=== PATIENT | male | born 1945 | race Caucasian/White ===

== ENCOUNTER 2016-06-07 13:06 | Outpatient (CLI) | payer OTHER, MEDICAID ==
[2015-08-11 01:16] VITALS: BP 155/62
== END 2016-06-07 13:07 ==
LOC: POD 13:06
PROVIDERS: ATTEND Podiatrist
DX: B35.1 Tinea unguium (principal); M79.674 Pain in right toe(s); M79.675 Pain in left toe(s)
CPT/HCPCS: 11721; G0463

== ENCOUNTER 2016-08-23 13:15 | Outpatient (CLI) | payer OTHER, MEDICAID ==
[2015-08-11 01:16] VITALS: BP 155/62
== END 2016-08-23 13:16 ==
LOC: POD 13:15
PROVIDERS: ATTEND Podiatrist
DX: B35.1 Tinea unguium (principal); M79.674 Pain in right toe(s); M79.675 Pain in left toe(s)
CPT/HCPCS: 11721; G0463

== ENCOUNTER 2016-11-01 13:00 | Outpatient (CLI) | payer OTHER, MEDICAID ==
[2015-08-11 01:16] VITALS: BP 155/62
== END 2016-11-01 13:10 ==
LOC: POD 13:00
PROVIDERS: ATTEND Podiatrist
DX: B35.1 Tinea unguium (principal); M79.674 Pain in right toe(s); M79.675 Pain in left toe(s)
CPT/HCPCS: 11721; G0463

== ENCOUNTER 2016-11-28 08:16 | Outpatient (CLI) | payer OTHER ==
[2015-08-11 01:16] VITALS: BP 155/62
[2016-11-28 09:00] LABS: eGFR (African) 43; eGFR (Non-African) 35
== END 2016-11-28 08:17 ==
LOC: LAB 08:16
PROVIDERS: ATTEND Family Medicine
DX: E11.9 Type 2 diabetes mellitus without complications (principal)
CPT/HCPCS: 36415; 80053; 80061; 82043; 83036

== ENCOUNTER 2017-01-31 13:33 | Outpatient (CLI) | payer OTHER ==
[2015-08-11 01:16] VITALS: BP 155/62
== END 2017-01-31 13:34 ==
LOC: POD 13:33
PROVIDERS: ATTEND Podiatrist
DX: B35.1 Tinea unguium (principal); M79.674 Pain in right toe(s); M79.675 Pain in left toe(s)
CPT/HCPCS: 11721; G0463

== ENCOUNTER 2017-02-06 09:39 | Outpatient (CLI) | payer OTHER ==
[2015-08-11 01:16] VITALS: BP 155/62
== END 2017-02-06 09:40 ==
LOC: OUT 09:39
PROVIDERS: ATTEND Colon & Rectal Surgery
DX: Z12.11 Encounter for screening for malignant neoplasm of colon (principal)
CPT/HCPCS: G0463

== ENCOUNTER 2017-03-20 07:57 | Day surgery (SDC) | payer OTHER ==
[2015-08-11 01:16] VITALS: BP 155/62
[2017-03-20] MEDS ORDERED: SALINE FLUSH 10 ML DISP.SYRIN IVF ONE (08:00)
[2017-03-20] MEDS ORDERED: LACTATED RINGERS 1,000 ML IV.SOLN IV ONE (08:00)
[2017-03-20] MEDS ORDERED: PROPOFOL 500 MG/50 ML VIAL IV ONE (08:00)
[2017-03-20] MEDS ORDERED: LIDOCAINE HCL/PF 2% 100 MG/5 ML VIAL IJ ONE (08:00)
--- NOTE | 2017-03-21 10:16 | Operative Note ---
SURGEON: Kun Anthony MD ANESTHESIA: MAC anesthesia. ESTIMATED BLOOD LOSS: None. COMPLICATIONS: None. FINDINGS: Normal exam. PREOPERATIVE DIAGNOSIS: Screening colonoscopy. POSTOPERATIVE DIAGNOSIS: Normal colonoscopy. PROCEDURE PERFORMED: Colonoscopy to cecum. INDICATIONS FOR PROCEDURE: This is a 72-year-old gentleman who presents for a screening colonoscopy. DESCRIPTION OF PROCEDURE: Patient was brought to the endoscopy suite and placed in the left lateral decubitus position. A rectal examination was performed which was normal. The colonoscope was inserted and passed easily to the cecum. The ileocecal valve and appendiceal orifice were identified. The prep was good. The colonoscope was slowly retracted being careful to inspect all fitzpatrick. No polyps or other lesions were seen. The patient tolerated the procedure well. DISPOSITION: I recommend a repeat colonoscopy in 10 years. cc: Dr. Adrian FREEDMAN
== END 2017-03-20 08:00 ==
LOC: OPSURG 07:57
PROVIDERS: ATTEND Colon & Rectal Surgery
DX: Z12.11 Encounter for screening for malignant neoplasm of colon (principal)
CPT/HCPCS: J2001; J2704; J7120; G0121; S1016

== ENCOUNTER 2017-05-10 08:51 | Emergency (ER) | payer OTHER ==
[2017-05-10] MEDS: hydrALAZINE HCL 20 MG/1 ML IVP ONE ×2 (09:12→09:27)
--- NOTE | 2017-05-10 09:16 | ED Physician Documentation ---
Neuro Symptoms - HISTORIAN Historian: patient - HPI Stated Complaint: Sudden onset MATAMOROS Chief Complaint: Neurological Symptoms Last known Well Date: 05/10/17 Last Known Well Time: 07:00 Last known Well Code/Unknown Code: Known Severity: severe Further Comments: yes (72 year old male patient brought in from [facility] with reports of "stroke like symptoms". On arrival patient reported "worst headache of his life" which started at 0720. Redirected to stat CT.) - CHARACTERS OF DEFICIT New Weakness: RUE (slightly weak) Altered Sensation: none Vision Problems: No Impaired Speech/ Swallowing: No Decreased Ability: none Cognition is Usually: alert, oriented x3 Gait is Usually: walks w/o assistance Associated Symptoms: headache (01/19) - ROS MENTAL STATUS: none CVS/Resp Upper Extremity Problem: none MS/SKIN/LYMPH: none Neuro/Psych: none - PAST HX Past History: diabetes Type 2 Other History: hypertension, other (Osteoarthritis, spinal stenosis) Surgeries/Procedures: other (ORIF tibia) Allergies/Adverse Reactions: Allergies Allergy/AdvReac Type Severity Reaction Status Date / Time No Known Allergies Allergy Verified 08/10/15 23:24 Home Medications: Ambulatory Orders Medication Instructions Recorded Aspirin [Aspirin EC] 81 mg PO DAILY u2 07/21/12 - FAMILY HX Family History: denies: none - SOCIAL HX Smoking History: cigarettes - VITAL SIGNS Vital Signs: Vital Signs Temp Pulse Resp BP Pulse Ox 64 18 182/64 98 05/11/17 00:51 05/11/17 00:51 05/11/17 00:51 05/11/17 00:51 - REVIEWED ASSESSMENTS Nursing Assessment Reviewed: Yes Vitals Reviewed: Yes Progress - Progress Progress: SBP 220 - Hydralazine 20mg IV started. Updated patient on CT results - explained patient would need immediate transfer to neurosurgeon. Call to [facility] Spoke with Dr Doherty's - patient accepted as code stroke. Orders for Keppra load IV and Nicardipine drip. [facility] in route, will load as soon as arrival. No Keppra or nicardipine available. Spoke with patient's daughter, updated on transport and patient's status. 0935 Will titrate labetalol IV for SBP until [facility] arrives. Heart rate 60-65 0955 Patient remains stable, AAOx3, speech clear and appropriate. Patient last PO intake 0700 - coffee, no breakfast - EKG/XRAY/CT EKG: rhythm (SR, rate 67, no acute changes) ED Results Lab/Radiology - Lab Results Lab Results: Lab Results 05/10/17 05/10/17 05/10/17 09:15 09:15 09:15 WBC 8.50 K/ul K/ul (4.00-12.00) RBC 3.80 M/ul L M/ul (3.90-5.20) Hgb 11.8 g/dL L g/dL (12.0-18.0) Hct 36.0 % L % (37.0-53.0) MCV 94.7 fl fl (80.0-100.0) MCH 31.0 pg pg (28.0-34.0) MCHC 32.7 g/dL g/dL (30.0-36.0) RDW 13.3 % % (11.3-14.3) Plt Count 228 K/mm3 K/mm3 (130-400) Neut % (Auto) 78.6 % % (39.0-79.0) Lymph % (Auto) 11.3 % L % (16.0-50.0) [place] % (Auto) 4.6 % % (0.0-11.0) Eos % (Auto) 2.9 % % (0.0-6.8) Baso % (Auto) 0.4 (0.0-1.5) Neut # (Auto) 6.7 # k/uL # k/uL (1.4-7.7) Lymph # (Auto) 1.0 # k/uL # k/uL (0.6-4.0) [place] # (Auto) 0.4 # k/uL # k/uL (0.0-0.9) Eos # (Auto) 0.2 # k/uL # k/uL (0.0-0.6) Baso # (Auto) 0.0 # k/uL # k/uL (0.0-0.5) Reactive Lymphs % 2.1 % % (0.0-5.0) Reactive Lymphs # 0.2 # k/uL # k/uL (0.0-0.8) PT 10.0 Seconds Seconds (9.4-11.6) INR 0.95 (0.9-1.2) APTT 21.0 Seconds L Seconds (24.5-32.8) Sodium 136 mmol/L mmol/L (136-145) Potassium 4.3 mmol/L mmol/L (3.5-5.1) Chloride 100 mmol/L mmol/L (98-107) Carbon Dioxide 26 mmol/L mmol/L (22-30) BUN 53 mg/dL H mg/dL (9-20) Creatinine 1.80 mg/dL H mg/dL (0.66-1.25) Estimated Creat Clear 63 Est GFR ( Amer) 48 L (60 - ) Est GFR (Non-Af Amer) 40 L (60 - ) Glucose 217 mg/dL H mg/dL (74-106) Calcium 9.3 mg/dL mg/dL (8.4-10.2) Total Bilirubin 0.4 mg/dL mg/dL (0.2-1.3) AST 18 U/L U/L (15-46) ALT 34 U/L U/L (13-69) Alkaline Phosphatase 99 U/L U/L (38-126) Total Protein 7.1 g/dL g/dL (6.3-8.2) Albumin 3.8 g/dL g/dL (3.5-5.0) - Radiology Radiology Impressions: HISTORY: 72-year-old male with headache and altered mental status. COMPARISON: None available. TECHNIQUE: Noncontrast axial CT images of the head were performed. FINDINGS: There is acute hemorrhage in the basilar cisterns, including suprasellar cistern, ambient cisterns, and foramen magnum. There is mass effect on the anterior margin of the john. No intracranial mass, midline shift, hydrocephalus, or evidence of acute large vessel infarct. The mastoid air cells , middle ear spaces, and partially visualized paranasal sinuses are clear. IMPRESSION: Acute extra-axial hemorrhage accumulating along the basilar cisterns, possibly related to aneurysm rupture about the [place]. These findings were discussed with Jumana Newberry NP in the emergency room on 05/10 at 09:06 a.m. 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 - Orders Orders: ED Orders Category Date Time Status Continuous EKG monitoring Q30M Care 05/10/17 08:52 Active Continuous Pulse Oximetry Q30M Care 05/10/17 08:[address] IV Lock 1T Care 05/10/17 09:[address] BRAIN W/O CONTRAST Stat Exams 05/10/17 Completed CBC/PLATELET/DIFF Stat Lab 05/10/17 09:15 Completed CMP Stat Lab 05/10/17 09:15 Completed INFLUENZA A&B Stat Lab 05/10/17 08:52 Ordered PT-INR Stat Lab 05/10/17 09:15 Completed PTT Stat Lab 05/10/17 09:15 Completed UA W/MICRO IF INDICATED Stat Lab 05/10/17 08:52 Ordered 0.9 % Sodium Chloride [Normal Saline] 1,000 ml Med 05/10/17 09:12 Discontinued IV NOW 0.9 % Sodium Chloride [Sodium Chloride] 100 ml Med 05/10/17 10:16 Discontinued IV .STK-MED Labetalol HCl [Trandate] Med 05/10/17 09:35 Discontinued 10 mg IVP NOW STA Labetalol HCl [Trandate] Med 05/10/17 09:29 Discontinued 100 mg .ROUTE .STK-MED ONE Ondansetron HCl/Pf [Zofran 4 mg/2 ml] Med 05/10/17 10:04 Discontinued 4 mg .ROUTE .STK-MED ONE Ondansetron HCl/Pf [Zofran 4 mg/2 ml] Med 05/10/17 10:05 Discontinued 4 mg IVP NOW ONE [facility] Med 05/10/17 09:29 Discontinued 1 each MC .STK-MED ONE hydrALAZINE HCL [Apresoline] Med 05/10/17 09:12 Discontinued 10 mg IVP NOW ONE hydrALAZINE HCL [Apresoline] Med 05/10/17 09:31 Discontinued 10 mg IVP NOW ONE Oxygen Daily Oxygen 05/10/17 09:00 Ordered EKG WITH COMPARISON Stat Ther 05/10/17 09:06 Completed Neuro Symptoms Physical Exam - Physical Exam General Appearance: mild distress HEENT: no apparent trauma, EOM's intact, PERRL, ENT inspection nml, pharynx nml , airway intact, oral exam nml Neuro/Psych: alert, oriented x3, no evidence of acute CVA, mood/affect nml Cranial Nerves: nml as tested Cerebellar: nml as tested, nml gait Pheripheral Exam: motor nml, sensation nml, other (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 machine 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 slightly less than left) Respiratory: no resp distress, chest non-tender, breath sounds normal CVS: reg rate & rhythm, heart sounds normal, equal pulses, no murmur, no gallop , PMI nml, no JVD, no friction rub, 24 Abdomen: non-tender, no distention, no organomegaly Skin: color nml, no rash, nml palp., dry Extremities: non-tender, normal range of motion, no evidence of injury, no edema , J, 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
[2017-05-10] MEDS: 0.9 % SODIUM CHLORIDE 1,000 ML IV ONE (09:18)
[2017-05-10 09:21] LABS: BASOPHILS % 0.4 (0.0-1.5); EOSINOPHILS % 2.9 % (0.0-6.8); MEAN CORPUSCULAR VOLUME 94.7 fl (80.0-100.0); MONOCYTES % 4.6 % (0.0-11.0); NEUTROPHILS # 6.7 # k/uL (1.4-7.7)
--- NOTE | 2017-05-10 09:22 | Diagnostic Imaging Report ---
[facility] [address] [facility].[address] [address] Report Submission Date: May 10, 2017 9:08:44 AM FABRIC WORKER Patient Study Name: ALBINO COPELAND Date: May 10, 2017 8:46:29 AM FABRIC WORKER Modality Type: CT\SR Gender: M Description: : 47 Institution: [facility] Physician: JUMANA BRIONES (MAURO) - ER HISTORY: 72-year-old male with headache and altered mental status. COMPARISON: None available. TECHNIQUE: Noncontrast axial CT images of the head were performed. FINDINGS: There is acute hemorrhage in the basilar cisterns, including suprasellar cistern, ambient cisterns, and foramen magnum. There is mass effect on the anterior margin of the john. No intracranial mass, midline shift, hydrocephalus, or evidence of acute large vessel infarct. The mastoid air cells , middle ear spaces, and partially visualized paranasal sinuses are clear. IMPRESSION: Acute extra-axial hemorrhage accumulating along the basilar cisterns, possibly related to aneurysm rupture about the [place]. These findings were discussed with Jumana Briones NP in the emergency room on 05/10 at 09:06 a.m. FABRIC WORKER. Electronically signed on May 10, 2017 9:08:44 AM FABRIC WORKER by: Richard FREEDMAN
[2017-05-10] MEDS ORDERED: PHARMACY KEY 1 EACH EACH MC ONE (09:29)
[2017-05-10] MEDS: LABETALOL HCL 100MG/20ML VIAL IVP STA (09:35)
[2017-05-10] MEDS: ONDANSETRON HCL/PF 4 MG/ 2ML VIAL IVP ONE (09:35)
[2017-05-10] MEDS: 0.9 % SODIUM CHLORIDE 100 ML IV ONE (09:40)
[2017-05-11] MEDS: LABETALOL HCL 100MG/20ML VIAL ONE (00:46)
[2017-05-11] MEDS: ONDANSETRON HCL/PF 4 MG/ 2ML VIAL ONE (00:48)
[2017-05-11 00:54] VITALS: BP 182/64
== END 2017-05-10 09:40 | disposition short-term general hospital (02) ==
LOC: ED 08:51
DX: I62.9 Nontraumatic intracranial hemorrhage, unspecified (principal); E11.9 Type 2 diabetes mellitus without complications; I10 Essential (primary) hypertension
CPT/HCPCS: 70450; 80053; 85025; 85610; 85730; 93005; J0360; J2405; J3490; J7030; 96361; 96374; 96375; 96376; 99284; S1016

== ENCOUNTER 2017-07-15 13:09 | Outpatient (CLI) | payer OTHER ==
[2017-05-11 00:54] VITALS: BP 182/64
== END 2017-07-15 13:20 ==
LOC: POD 13:09
PROVIDERS: ATTEND Podiatrist
DX: B35.1 Tinea unguium (principal); M79.674 Pain in right toe(s); M79.675 Pain in left toe(s)
CPT/HCPCS: 11721; G0463

== ENCOUNTER 2017-07-29 16:46 | Observation (INO) | payer OTHER ==
--- NOTE | 2017-07-29 17:50 | ED Physician Documentation ---
General Adult - HISTORIAN Historian: child - HPI Chief Complaint: Lower Extremity Problem Additional Information: Patient has had a several day history of increaseing pain to the left knee. Was seen at the [facility] last noc and had some x-rays done and blood work done and was told he had arthritis tot he knee. Patient has gotten to the point that he is not able to bear weight on the knee. Has not been able to get around will with his walker. No history of trauma noted. Had a steroid ? shot in the knee while at [facility]. Has been seen at [facility] for subdural bleed related gait disturbance. Has been home for about 10 days on Home Health. Patient is more confused today, ? breathing heavier today. No fever or chills noted. Blood sugars have been doing OK, in the 200s today. Onset: days ago (3 days) Timing: worse Severity: moderate Modifying Factors: laying down helps Context: no truama Quality: sharp achy pain Location: left knee - ROS CONST: denies: fever, chills CVS/RESP: none GI/: none - PAST HX Past History: hypertension, other (spinal stenosis - lumbar) Other History: diabetes Type 2, other (recent subarachnoid hemorrhage) Surgeries/Procedures: other (ORIF tib fracture) Immunizations: referred to PCP - SOCIAL HX Smoking History: less than 1 pack/day (5-6/day) Alcohol Use: none Drug Use: none - FAMILY HX Family History: No - VITAL SIGNS Vital Signs: Vital Signs Temp Pulse Resp BP Pulse Ox 182/64 05/11/17 00:51 - REVIEWED ASSESSMENTS Nursing Assessment Reviewed: Yes Vitals Reviewed: Yes <Adrian Narvaez - Last Filed: 07/29/17 17:38> - VITAL SIGNS Vital Signs: Vital Signs Temp Pulse Resp BP Pulse Ox 98.5 F 96 H 20 123/45 95 07/29/17 17:18 07/29/17 17:18 07/29/17 17:18 07/29/17 17:18 07/29/17 17:18 <Jamari Hopson - Last Filed: 07/29/17 19:47> - PAST HX Allergies/Adverse Reactions: Allergies Allergy/AdvReac Type Severity Reaction Status Date / Time No Known Allergies Allergy Verified 07/29/17 17:47 Home Medications: Ambulatory Orders Medication Instructions Recorded Acetaminophen [Tylenol] 650 mg PO Q4-6 PRN 07/29/17 Benzocaine/Menthol [Cepacol Sore 1 each MM PRN PRN 07/29/17 Throat Lozenge] Guaifenesin [Mucinex] 600 mg PO BID PRN 07/29/17 Insulin Detemir [Levemir Flex-Pen] 18 unit SQ HS 07/29/17 Ketoconazole [Ketoderm] 15 gm TP PRN 07/29/17 Progress - Progress Progress: X-ray L knee: advanced osteoarthritis Pt lives alone, unstable, fall risk at home. Admit to Dr. Narvaez. <Jamari Hopson Last Filed: 07/29/17 19:47> ED Results Lab/Radiology - Lab Results Lab Results: Lab Results 07/29/17 07/29/17 18:58 18:58 WBC 11.80 K/ul K/ul (4.00-12.00) RBC 3.41 M/ul L M/ul (3.90-5.20) Hgb 10.0 g/dL L g/dL (12.0-18.0) Hct 32.1 % L % (37.0-53.0) MCV 94.2 fl fl (80.0-100.0) MCH 29.2 pg pg (28.0-34.0) MCHC 31.0 g/dL g/dL (30.0-36.0) RDW 15.0 % H % (11.3-14.3) Plt Count 217 K/mm3 K/mm3 (130-400) Neut % (Auto) 88.5 % H % (39.0-79.0) Lymph % (Auto) 4.8 % L % (16.0-50.0) [place] % (Auto) 5.1 % % (0.0-11.0) Eos % (Auto) 0.4 % % (0.0-6.8) Baso % (Auto) 0.2 (0.0-1.5) Neut # (Auto) 10.5 # k/uL H # k/uL (1.4-7.7) Lymph # (Auto) 0.6 # k/uL # k/uL (0.6-4.0) [place] # (Auto) 0.6 # k/uL # k/uL (0.0-0.9) Eos # (Auto) 0.0 # k/uL # k/uL (0.0-0.6) Baso # (Auto) 0.0 # k/uL # k/uL (0.0-0.5) Reactive Lymphs % 1.1 % % (0.0-5.0) Reactive Lymphs # 0.1 # k/uL # k/uL (0.0-0.8) Sodium 135 mmol/L L mmol/L (136-145) Potassium 4.6 mmol/L mmol/L (3.5-5.1) Chloride 98 mmol/L mmol/L (98-107) Carbon Dioxide 24 mmol/L mmol/L (22-30) BUN 40 mg/dL H mg/dL (9-20) Creatinine 1.80 mg/dL H mg/dL (0.66-1.25) Estimated Creat Clear 58 Est GFR ( Amer) 48 L (60 - ) Est GFR (Non-Af Amer) 40 L (60 - ) Glucose 229 mg/dL H mg/dL (74-106) Uric Acid 7.3 mg/dL mg/dL (3.5-8.5) Calcium 9.1 mg/dL mg/dL (8.4-10.2) Total Bilirubin 0.7 mg/dL mg/dL (0.2-1.3) AST 15 U/L U/L (15-46) ALT 20 U/L U/L (13-69) Alkaline Phosphatase 113 U/L U/L (38-126) Total Protein 6.9 g/dL g/dL (6.3-8.2) Albumin 3.6 g/dL g/dL (3.5-5.0) - Orders Orders: ED Orders Category Date Time Status KNEE 3 VIEWS [RAD] Stat Exams 07/29/17 Taken CBC/PLATELET/DIFF Routine Lab 07/29/17 18:58 Completed CMP Routine Lab 07/29/17 18:58 Completed SEDIMENTATION RATE (ESR) Routine Lab 07/29/17 18:58 Received URIC ACID Routine Lab 07/29/17 18:58 Completed URINALYSIS Routine Lab 07/29/17 18:55 Ordered Ketorolac Tromethamine [Toradol] Med 07/29/17 17:52 Discontinued 60 mg IM NOW ONE <Jamari Hopson Last Filed: 07/29/17 19:47> General Adult Physical Exam - PHYSICAL EXAM GENERAL APPEARANCE: moderate distress NECK: normal inspection, thyroid normal, supple RESPIRATORY: no resp distress, chest non-tender, breath sounds normal. No: wheezes, rales, rhonchi CVS: reg rate & rhythm, heart sounds normal, equal pulses, no murmur ABDOMEN: soft, no organomegaly, normal bowel sounds, no abdominal bruit BACK: normal inspection, no CVA tenderness SKIN: warm/dry, normal color EXTREMITIES: other (mild swelling to the left knee, some crepitus noted. No warm noted. Tenderness to palpation over the anterior knee. No bony abnl noted.) NEURO: oriented X3, mood/affect nml, cognition normal <Adrian Narvaez - Last Filed: 07/29/17 17:38> Discharge <Adrian Narvaez - Last Filed: 07/29/17 17:38> Decision to Admit: [id number] Decision Time: 19:45 <Jamari Hopson - Last Filed: 07/29/17 19:47> Clincal Impression: unstable gait Knee pain Qualifiers: Chronicity: unspecified Laterality: unspecified laterality Qualified Code(s): M25.569 - Pain in unspecified knee Referrals: Adrian Narvaez MD [Primary Care Provider] - Condition: Stable Disposition: 09 ADMITTED INPATIENT
[2017-07-29] MEDS ORDERED: KETOROLAC TROMETHAMINE 60 MG/2 ML VIAL IM ONE (17:52)
[2017-07-29 19:06] LABS: BASOPHILS % 0.2 (0.0-1.5); EOSINOPHILS % 0.4 % (0.0-6.8); MEAN CORPUSCULAR HEMOGLOBIN 29.2 pg (28.0-34.0); MEAN CORPUSCULAR VOLUME 94.2 fl (80.0-100.0); MONOCYTES % 5.1 % (0.0-11.0); NEUTROPHILS # 10.5 # k/uL (1.4-7.7)
[2017-07-29] MEDS ORDERED: ACETAMINOPHEN 325 MG TABLET PO PRN (19:56)
[2017-07-29] MEDS ORDERED: KETOCONAZOLE TP SCH (20:00)
[2017-07-29] MEDS ORDERED: SIMVASTATIN 20 MG TABLET PO SCH (21:00)
[2017-07-29] MEDS ORDERED: INSULIN DETEMIR 100 UNIT/ML 3ML PEN.INJCTR SQ SCH ×2 (21:00→21:13)
[2017-07-29] MEDS ORDERED: INSULIN DETEMIR 100 UNIT/ML 3ML PEN.INJCTR SQ ONE (21:06)
[2017-07-29 21:23] VITALS: BMI 70.5
[2017-07-30] MEDS ORDERED: LISINOPRIL 2.5 MG TABLET PO ONE (02:11)
--- NOTE | 2017-07-30 05:27 | Diagnostic Imaging Report ---
NORA JENKINS [facility] [address] [facility].[address]. [address] Report Submission Date: Jul 29, 2017 6:17:53 PM CDT Patient Study Name: ALBINO COPELAND Date: Jul 29, 2017 5:57:39 PM CDT Modality Type: DX Gender: M Description: LOWER EXTREMITY : 47 Institution: [facility] Physician: NORA JENKINS Left knee, AP, lateral and sunrise views. HISTORY Left knee pain. FINDINGS Significant joint space narrowing is noted in the medial compartment and patellofemoral compartment. There is spur formation at the distal femur, proximal tibia and patella. There is no acute fracture, dislocation or abnormal bone destruction. IMPRESSION Advanced osteoarthritis. Electronically signed on Jul 29, 2017 6:17:53 PM CDT by: Pelon FREEDMAN
[2017-07-30 06:39] LABS: APPEARANCE,URINE CLEAR (CLEAR); COLOR,URINE YELLOW (YELLOW)
[2017-07-30 06:40] LABS: OCCULT BLOOD,URINE NEGATIVE (NEGATIVE); UROBILINOGEN URINE 0.2 Eu (0.2-1.0)
--- NOTE | 2017-07-30 08:28 | Inpatient Progress Note ---
Subjective - Required Recertification Statement I anticipate X number of days because-include discharge plan: 1 - Review of Systems Events since last encounter: patient is still having a lot of pain with his left knee. He is moving it some. Still not able to bear weight on it will. Does not feel that he can manage at home. Objective - Exam Vitals and I&O: Vital Signs Temp 97.2 F L 07/30/17 06:00 Pulse 68 07/30/17 06:00 Resp 18 07/30/17 06:00 BP 157/65 07/30/17 06:00 Pulse Ox 95 07/30/17 06:00 Intake & Output 07/29/17 07/29/17 07/30/17 11:59 23:59 11:59 Intake Total 120 Output Total 450 Balance -330 Weight 236 kg Intake: Oral 120 Output: Urine 450 Other: Voiding Method Urinal General: Alert, Oriented to Person, Oriented to Place, Oriented to Time, Cooperative Lungs: Clear to auscultation, Normal air movement, Speaks full Sentences. No: Respiratory Distress, Wheezes, Rales, Rhonchi Cardiovascular: Regular rate, Normal S1, Normal S2, No murmurs Abdomen: Normal bowel sounds, Soft, No tenderness Extremities: No clubbing, No cyanosis, No edema, Other (moderate tenderness to palpation over the anterior aspect of the knee. Crepitus present. Pain with movement. Mild swelling noted. no joint effusion noted at this time. ) Skin: Normal, [place], Warm, Dry Neurological: Normal tone, Sensation intact Psych/Mental Status: Mental status NL, Mood NL - Results Results: Laboratory Results WBC 11.80 K/ul (4.00-12.00) 07/29/17 18:58 RBC 3.41 M/ul (3.90-5.20) L 07/29/17 18:58 Hgb 10.0 g/dL (12.0-18.0) L 07/29/17 18:58 Hct 32.1 % (37.0-53.0) L 07/29/17 18:58 MCV 94.2 fl (80.0-100.0) 07/29/17 18:58 MCH 29.2 pg (28.0-34.0) 07/29/17 18:58 MCHC 31.0 g/dL (30.0-36.0) 07/29/17 18:58 RDW 15.0 % (11.3-14.3) H 07/29/17 18:58 Plt Count 217 K/mm3 (130-400) 07/29/17 18:58 Neut % (Auto) 88.5 % (39.0-79.0) H 07/29/17 18:58 Lymph % (Auto) 4.8 % (16.0-50.0) L 07/29/17 18:58 [place] % (Auto) 5.1 % (0.0-11.0) 07/29/17 18:58 Eos % (Auto) 0.4 % (0.0-6.8) 07/29/17 18:58 Baso % (Auto) 0.2 (0.0-1.5) 07/29/17 18:58 Neut # (Auto) 10.5 # k/uL (1.4-7.7) H 07/29/17 18:58 Lymph # (Auto) 0.6 # k/uL (0.6-4.0) 07/29/17 18:58 [place] # (Auto) 0.6 # k/uL (0.0-0.9) 07/29/17 18:58 Eos # (Auto) 0.0 # k/uL (0.0-0.6) 07/29/17 18:58 Baso # (Auto) 0.0 # k/uL (0.0-0.5) 07/29/17 18:58 Reactive Lymphs % 1.1 % (0.0-5.0) 07/29/17 18:58 Reactive Lymphs # 0.1 # k/uL (0.0-0.8) 07/29/17 18:58 Sodium 135 mmol/L (136-145) L 07/29/17 18:58 Potassium 4.6 mmol/L (3.5-5.1) 07/29/17 18:58 Chloride 98 mmol/L (98-107) 07/29/17 18:58 Carbon Dioxide 24 mmol/L (22-30) 07/29/17 18:58 BUN 40 mg/dL (9-20) H 07/29/17 18:58 Creatinine 1.80 mg/dL (0.66-1.25) H 07/29/17 18:58 Estimated Creat Clear 58 03 18:58 Est GFR ( Amer) 48 (60-) L 07/29/17 18:58 Est GFR (Non-Af Amer) 40 (60-) L 18 18:58 Glucose 229 mg/dL (74-106) H 07/29/17 18:58 Uric Acid 7.3 mg/dL (3.5-8.5) 07/29/17 18:58 Calcium 9.1 mg/dL (8.4-10.2) 07/29/17 18:58 Total Bilirubin 0.7 mg/dL (0.2-1.3) 07/29/17 18:58 AST 15 U/L (15-46) 07/29/17 18:58 ALT 20 U/L (13-69) 07/29/17 18:58 Alkaline Phosphatase 113 U/L (38-126) 07/29/17 18:58 Total Protein 6.9 g/dL (6.3-8.2) 07/29/17 18:58 Albumin 3.6 g/dL (3.5-5.0) 07/29/17 18:58 Urine Color Yellow (YELLOW) 07/30/17 18:50 Urine Appearance Clear (CLEAR) 07/30/17 18:50 Urine pH 5.0 (5.0 - 8.0) 07/30/17 18:50 Ur Specific [place] 1.025 (1.010-1.030) 07/30/17 18:50 Urine Protein 1+ mg/dL (NEGATIVE) H 07/30/17 18:50 Urine Ketones Negative mg/dL (NEGATIVE) 07/30/17 18:50 Urine Occult Blood Negative (NEGATIVE) 07/30/17 18:50 Urine Nitrite Negative (NEGATIVE) 07/30/17 18:50 Urine Bilirubin Negative (NEGATIVE) 07/30/17 18:50 Urine Urobilinogen 0.2 Eu (0.2-1.0) 07/30/17 18:50 Ur Leukocyte Esterase Negative (NEGATIVE) 07/30/17 18:50 Urine Glucose Negative mg/dL (NEGATIVE) 07/30/17 18:50 Assessment/Plan - Assessment/Plan (1) Knee pain Status: Acute Current Visit: Yes Qualifiers: Chronicity: unspecified Laterality: unspecified laterality Qualified Code (s): M25.569 - Pain in unspecified knee Assessment: believe itis acute exacerbation of OA. Patient does have an appointment to see orthopedics. Has had the knee injected with steroid about 2-3 weeks age with minimal improvement. Patient is not able to perform i=his dialy living cares at this time due tot he pain. Will evaluate for possible SNF adminssion or may need to consider ICF until it improves. (2) Hypertension Status: Acute Current Visit: No Qualifiers: Hypertension type: essential hypertension Qualified Code(s): I10 - Essential (primary) hypertension (3) Chronic kidney disease stage 3 Status: Chronic Current Visit: No (4) Diabetes mellitus type 2 Status: Chronic Current Visit: No
[2017-07-30] MEDS ORDERED: NAPROXEN 250 MG TABLET PO SCH (09:00)
[2017-07-30] MEDS ORDERED: LISINOPRIL 2.5 MG TABLET PO SCH (09:00)
[2017-07-30] MEDS ORDERED: FLUoxetine HCL 10 MG CAPSULE PO SCH ×2 (09:00→21:00)
[2017-07-30] MEDS ORDERED: ALLOPURINOL 100 MG TABLET PO SCH (09:00)
[2017-07-30] MEDS ORDERED: LISINOPRIL 20 MG TABLET PO SCH (09:00)
[2017-07-30] MEDS: INSULIN REGULAR, HUMAN 100 UNIT/ML 3ML VIAL SQ SCH ×2 (11:59→13:49)
[2017-07-30] MEDS ORDERED: FLUoxetine HCL 10 MG CAPSULE PO ONE (13:32)
[2017-07-30 13:58] VITALS: BP 141/56
--- NOTE | 2017-07-31 08:03 | Discharge Summary ---
Discharge Summary - Discharge Sumary History of Present Illness: Patient has had a several day history of increasing pain to the left knee. Was seen at the [facility] last noc and had some x-rays done and blood work done and was told he had arthritis to the knee. Patient has gotten to the point that he is not able to bear weight on the knee. Has not been able to get around will with his walker. No history of trauma noted. Had a steroid ? shot in the knee while at [facility]. Has been seen at [facility] for subdural bleed related gait disturbance. Has been home for about 10 days on Home Health. Home Medications: Ambulatory Orders Medication Instructions Recorded Acetaminophen [Tylenol] 650 mg PO Q4-6 PRN 07/29/17 Guaifenesin [Mucinex] 600 mg PO BID PRN 07/29/17 Insulin Detemir [Levemir Flex-Pen] 18 unit SQ HS 07/29/17 Ketoconazole [Nizoral] 15 gm TP PRN 07/29/17 Allergies/Adverse Reactions: Allergies Allergy/AdvReac Type Severity Reaction Status Date / Time No Known Allergies Allergy Verified 07/29/17 17:47 Patient Problems: Current Active Problems Problem Status Onset Osteoarthritis of left knee Acute Discharge Summary: Patient was started on oral pain medications to try to control his pain. Patient continues to have a a lot of pain with flexion and extension of the knee and weight-bearing. It was felt that he would benefit from some occupational physical therapy in a skilled setting. Patient was subsequently discharged to [facility]. Patient blood sugars did remain in the upper 100 to 200 range during his observation stay. Other chronic medical problems remain stable. - Final Diagnosis (1) Knee pain Problems: not improved (2) Hypertension Problems: stable on home meds (3) Chronic kidney disease stage 3 Problems: stable (4) Diabetes mellitus type 2 Problems: stable on home meds
== END 2017-07-30 15:42 ==
LOC: ED 16:46 → SOUTH 20:04
PROVIDERS: ADMIT Family Medicine; ATTEND Family Medicine
DX: M25.569 Pain in unspecified knee (principal); I10 Essential (primary) hypertension; N18.3 Chronic kidney disease, stage 3 (moderate); E11.9 Type 2 diabetes mellitus without complications
CPT/HCPCS: 73562; 80053; 81002; 84550; 85025; 85651; 97535; G0378; J1815; J1885; 99217; 99218; 99283

== ENCOUNTER 2017-07-30 15:42 | Inpatient (IN) | payer OTHER ==
[2017-07-30 17:59] VITALS: BMI 70.5
[2017-07-30] MEDS: INSULIN DETEMIR 100 UNIT/ML 3ML PEN.INJCTR SQ SCH (20:53)
[2017-07-30] MEDS: SIMVASTATIN 20 MG TABLET PO SCH (20:56)
[2017-07-30] MEDS: ACETAMINOPHEN 325 MG TABLET PO PRN (22:14)
--- NOTE | 2017-07-31 07:37 | History and Physical Report ---
History of Present Illnes - History of Present Illness Reason for Visit: left knee pain / gait disturbance History of Present Illness: Patient has had a several day history of increasing pain to the left knee. 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 The pain seems to be getting progressively worse. Patient has gotten to the point that he is not able to bear weight on the knee anymore. Has not been able to get around will with his walker. No history of trauma noted to the knee. Has been seen at [facility] for subdural bleed related gait disturbance. Had a steroid ? shot in the knee while at [facility]. Has been home for about 10 days on Home Health. He seemed to do well for several dasy then started to develop some pain in the knee. Patient's daughter states that he has been more confused, ? breathing heavier today. No fever or chills noted. Blood sugars have been doing OK, in the 200s most of the time. Patient was evaluated by physical and occupational therapy. It was felt that he would benefit from some in patient skilled services. Patient was subsequently admitted to the SNF unit. 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 denies: Tetanus Influenza Vaccine: Current for this Influenza Season Pneumonia Vaccine: Yes Resuscitation Status: Resusciation Status Resuscitation Status Full Code - Unable to Obtain History Unable to Obtain: No Review of Systems - Review of Systems Constitutional: negative: Fever, Chills, Sweats, Weakness Eyes: negative: pain, vision change ENT: Other (decrease hearing acuity). negative: Ear Pain, Ear Discharge, Nose Pain, Nose Discharge, Nose Congestion, Throat Pain, Throat Swelling Respiratory: negative: Cough, Dry, Shortness of Breath, Hemoptysis, SOB with Excertion, Pleuritic Pain, Sputum, Wheezing Cardiovascular: negative: Chest Pain, Palpitations, Orthopnea, Paroxysmal Noc. Dyspnea, Edema, Light Headedness Gastrointestinal: Constipation. negative: Nausea, Vomiting, Abdominal Pain, Diarrhea, Melena, Hematochezia Genitourinary: negative: Dysuria, Frequency, Incontinence, Hematuria Musculoskeletal: Back Pain (chronic), Leg Pain (left knee) Skin: negative: Rash, Lesions Neurological: Weakness (generalized). negative: Numbness, Incoordination, Confusion, Seizures - Medications/Allergies Allergies/Adverse Reactions: Allergies Allergy/AdvReac Type Severity Reaction Status Date / Time No Known Allergies Allergy Verified 07/29/17 17:47 Current Inpatient Medications: Current Inpatient Medications Acetaminophen (Tylenol) 650 mg PO Q4-6 PRN PRN Reason: PAIN Last Admin: 07/30/17 22:14 Dose: 650 mg Allopurinol (Zyloprim) 100 mg PO DAILY [facility] Fluoxetine HCl (Prozac) 20 mg PO DAILY [facility] Insulin Detemir (Levemir Flex-Pen) 18 unit SQ HS [facility] Last Admin: 07/30/17 20:53 Dose: 18 units Lisinopril (Prinivil) 20 mg PO DAILY [facility] Miscellaneous (Non Form) 60 each PO D [facility] Miscellaneous (Chem Sticks) 1 each MC CHEMQID [facility] Last Admin: 07/31/17 07:19 Dose: 1 each Simvastatin (Zocor) 20 mg PO HS [facility] Last Admin: 07/30/17 20:56 Dose: 20 mg Exam - Exam Vital Signs: Vital Signs (72 hours) 07/30/17 07/30/17 07/30/17 06:00 13:58 16:24 Temperature 97.9 F Pulse Rate [ 84 Apical] Pulse Rate [ Pulse ox] Respiratory 20 Rate Blood Pressure 141/56 Blood Pressure 141/56 138/67 [Left Arm] Blood Pressure 157/65 157/65 [Right Arm] O2 Sat by Pulse 94 Oximetry 07/30/17 20:24 Temperature 97.5 F L Pulse Rate [ Apical] Pulse Rate [ 83 Pulse ox] Respiratory 18 Rate Blood Pressure Blood Pressure [Left Arm] Blood Pressure 102/48 [Right Arm] O2 Sat by Pulse 97 Oximetry General: Alert, Oriented to Person, Oriented to Place, Oriented to Time, Cooperative, Mild distress HEENT: Atraumatic, PERRLA, EOMI, Mouth Mucous membr. moist/[place], Nose Mucous membr. moist/[place], Dentition Normal, Decreased Hearing Acuity Neck: Normal Range of Motion Lungs: Clear to auscultation, Normal air movement, Speaks full Sentences Cardiovascular: Regular rate, Normal S1, Normal S2, No murmurs Abdomen: Normal bowel sounds, Soft, No tenderness, No hepatospenomegaly, No masses. No: Distended Integumentary: Normal, [place], Warm, Dry Extremities: No clubbing, No cyanosis, No edema, Normal pulses, No tenderness/ swelling, Other (there was some swelling and tenderness to the anterior aspect of the left knee. No joint effusion noted. No warmth was noted to the joint. Patient does have pain with flexion of the knee. Patient does have some crepitus noted.) Neurological: Normal gait, Normal speech, Strength Equal Bilat, Normal tone, Sensation intact, Cranial nerves 3-12 NL, Reflexes 2+, Generalized Weakness Psych/Mental Status: Mental status NL, Mood NL, Appropriate Affect, Intact Judgment Assessment/Plan - Assessment/Plan (1) Osteoarthritis of left knee Status: Acute Current Visit: Yes Assessment: PT and OT evaluation and treat. Hopefully we will be able to get the patient back on his feet so he can return home.Will continue with NSAIDs. Patient has ortho appointment. (2) Hypertension Status: Acute Current Visit: No Qualifiers: Hypertension type: essential hypertension Qualified Code(s): I10 - Essential (primary) hypertension Assessment: I will monitor continue with home medications. (3) Hyperuricemia Status: Acute Current Visit: No Assessment: Patient uric acid level has been checked and is within normal range (4) Diabetes mellitus type 2 Status: Chronic Current Visit: No Assessment: Will continue with home medications and monitor patient blood sugars. VTE Assessment - RISK FACTOR SCORE VTE RISK FACTOR SCORES: AGE OVER 60 YEARS, ANTICIPATED BED CONFINEMENT OR IMMOBILIZATION > 24 HOURS - RISK VTE MODERATE RISK: SCORE OF 2 (RISK PROXIMAL DVT 2-4%) PROPHYAXIS NEEDED
--- NOTE | 2017-07-31 07:59 | Discharge Summary ---
Discharge Summary - Discharge Sumary History of Present Illness: Patient has had a several day history of increaseing pain to the left knee. 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 Patient has gotten to the point that he is not able to bear weight on the knee. Has not been able to get around will with his walker. No history of trauma noted. Had a steroid ? shot in the knee while at [place]. Has been seen at [facility] for subdural bleed related gait disturbance. Has been home for about 10 days on Home Health. Patient is more confused today, ? breathing heavier today. No fever or chills noted. Blood sugars have been doing OK, in the 200s today. Patient was started on oral pain medications to try to control his pain. Patient continues to have a a lot of pain with flexion and extension of the knee and weight-bearing. It was felt that he would benefit from some occupational physical therapy in a skilled setting. Patient was subsequently discharged to SNF. Patient blood sugars did remain in the upper 100 to 200 range during his observation stay. Other chronic medical problems remain stable. Home Medications: Ambulatory Orders Medication Instructions Recorded Acetaminophen [Tylenol] 650 mg PO Q4-6 PRN 07/29/17 Guaifenesin [Mucinex] 600 mg PO BID PRN 07/29/17 Insulin Detemir [Levemir Flex-Pen] 18 unit SQ HS 07/29/17 Allergies/Adverse Reactions: Allergies Allergy/AdvReac Type Severity Reaction Status Date / Time No Known Allergies Allergy Verified 07/29/17 17:47 Discharge Summary: His ability to participate with limited by the arthritic pain in his left knee. Patient was tried on various pain regimen to try to help with the discomfort. Patient got to the point where he was not participating with physical therapy well. It was felt that the patient should be discharged to an ICF setting until he could have further evaluation for his arthritic knee pain. Patient was subsequently transferred to [facility] for further rehab services. Patient blood sugars during the course of stay remain stable without any hyper hypoglycemic episode. Hypertension remain stable without any chest pain chest pressure TIA or CVA symptoms. - Final Diagnosis (1) Osteoarthritis of left knee Problems: Continues to cause patient a lot of pain. (2) Hypertension Problems: Stable on home medications. (3) Hyperuricemia Problems: Stable on home medications.
[2017-07-31] MEDS: ALLOPURINOL 100 MG TABLET PO SCH (09:15)
[2017-07-31] MEDS: LISINOPRIL 20 MG TABLET PO SCH (09:15)
[2017-07-31] MEDS: FLUoxetine HCL 10 MG CAPSULE PO SCH (09:15)
[2017-07-31] MEDS: Non-Formulary 1 EACH PO SCH (09:17)
[2017-07-31] MEDS: ACETAMINOPHEN 325 MG TABLET PO PRN (13:04)
[2017-07-31] MEDS: INSULIN DETEMIR 100 UNIT/ML 3ML PEN.INJCTR SQ SCH (19:33)
[2017-07-31] MEDS: SIMVASTATIN 20 MG TABLET PO SCH (19:33)
[2017-08-01] MEDS: LISINOPRIL 20 MG TABLET PO SCH (09:09)
[2017-08-01] MEDS: Non-Formulary 1 EACH PO SCH (09:09)
[2017-08-01] MEDS: ALLOPURINOL 100 MG TABLET PO SCH (09:10)
[2017-08-01] MEDS: FLUoxetine HCL 10 MG CAPSULE PO SCH (09:12)
[2017-08-01] MEDS: ACETAMINOPHEN 325 MG TABLET PO PRN (14:02)
[2017-08-01] MEDS: INSULIN DETEMIR 100 UNIT/ML 3ML PEN.INJCTR SQ SCH (20:12)
[2017-08-01] MEDS: SIMVASTATIN 20 MG TABLET PO SCH (20:32)
[2017-08-02] MEDS: ACETAMINOPHEN 325 MG TABLET PO PRN ×2 (04:58→18:20)
[2017-08-02] MEDS: Non-Formulary 1 EACH PO SCH (09:15)
[2017-08-02] MEDS: LISINOPRIL 20 MG TABLET PO SCH (09:15)
[2017-08-02] MEDS: FLUoxetine HCL 10 MG CAPSULE PO SCH (09:16)
[2017-08-02] MEDS: ALLOPURINOL 100 MG TABLET PO SCH (09:16)
[2017-08-02] MEDS: SIMVASTATIN 20 MG TABLET PO SCH (20:50)
[2017-08-02] MEDS: INSULIN DETEMIR 100 UNIT/ML 3ML PEN.INJCTR SQ SCH (20:50)
[2017-08-03] MEDS: Non-Formulary 1 EACH PO SCH (09:48)
[2017-08-03] MEDS: LISINOPRIL 20 MG TABLET PO SCH (09:48)
[2017-08-03] MEDS: ALLOPURINOL 100 MG TABLET PO SCH (09:49)
[2017-08-03] MEDS: FLUoxetine HCL 10 MG CAPSULE PO SCH (09:50)
[2017-08-03] MEDS: SIMVASTATIN 20 MG TABLET PO SCH (20:10)
[2017-08-03] MEDS: INSULIN DETEMIR 100 UNIT/ML 3ML PEN.INJCTR SQ SCH (20:12)
[2017-08-04] MEDS: ACETAMINOPHEN 325 MG TABLET PO PRN ×2 (02:38→20:28)
[2017-08-04] MEDS: LISINOPRIL 20 MG TABLET PO SCH (08:46)
[2017-08-04] MEDS: FLUoxetine HCL 10 MG CAPSULE PO SCH (08:46)
[2017-08-04] MEDS: Non-Formulary 1 EACH PO SCH (08:47)
[2017-08-04] MEDS: ALLOPURINOL 100 MG TABLET PO SCH (08:47)
[2017-08-04] MEDS: SIMVASTATIN 20 MG TABLET PO SCH (20:24)
[2017-08-04] MEDS: INSULIN DETEMIR 100 UNIT/ML 3ML PEN.INJCTR SQ SCH (20:25)
[2017-08-05] MEDS: Non-Formulary 1 EACH PO SCH (09:21)
[2017-08-05] MEDS: ALLOPURINOL 100 MG TABLET PO SCH (09:21)
[2017-08-05] MEDS: LISINOPRIL 20 MG TABLET PO SCH (09:21)
[2017-08-05] MEDS: FLUoxetine HCL 10 MG CAPSULE PO SCH (09:22)
--- NOTE | 2017-08-05 10:08 | Inpatient Progress Note ---
Subjective - Required Recertification Statement I anticipate X number of days because-include discharge plan: 7 days - Review of Systems Events since last encounter: Patient has been complaining of more pain in the left knee area. No recent trauma noted. Is not able to bear much weight on it. It seems to be limiting his ability to participate with PT at this time. Objective - Exam Vitals and I&O: Vital Signs Temp 97.6 F 08/04/17 21:00 Pulse 72 08/04/17 21:00 Resp 16 08/04/17 21:00 BP 142/69 08/04/17 21:00 Pulse Ox 98 08/04/17 21:00 Intake & Output 08/04/17 08/04/17 08/05/17 11:59 23:59 11:59 Intake Total 1380 1080 Balance 1380 1080 Intake: Oral 1380 1080 Other: Voiding Method Urinal Urinal # Voids 2 1 1 General: Alert, Oriented to Person, Oriented to Place, Oriented to Time, Cooperative Neck: Supple Lungs: Clear to auscultation, Normal air movement, Speaks full Sentences. No: Wheezes, Rales, Rhonchi Cardiovascular: Regular rate, Normal S1, Normal S2, No murmurs Abdomen: Normal bowel sounds, Soft, No tenderness Extremities: Other (tenderness to palpation over the left knee. Minimal swelling at this time. ) Skin: Normal, [place], Warm, Dry Neurological: Normal speech, Strength Equal Bilat, Normal tone, Sensation intact. No: Normal gait Psych/Mental Status: Mental status NL, Mood NL, Appropriate Affect Assessment/Plan - Assessment/Plan (1) Osteoarthritis of left knee Status: Acute Assessment: Will look at pain meds and see if we can change things around. Will continue with PT and OT at this time. (2) Hypertension Status: Acute Qualifiers: Hypertension type: essential hypertension Qualified Code(s): I10 - Essential (primary) hypertension (3) Hyperuricemia Status: Acute (4) Diabetes mellitus type 2 Status: Chronic
[2017-08-05] MEDS: SIMVASTATIN 20 MG TABLET PO SCH (20:27)
[2017-08-05] MEDS: ACETAMINOPHEN 325 MG TABLET PO PRN (20:27)
[2017-08-05] MEDS: INSULIN DETEMIR 100 UNIT/ML 3ML PEN.INJCTR SQ SCH (20:29)
[2017-08-06] MEDS: FLUoxetine HCL 10 MG CAPSULE PO SCH (09:34)
[2017-08-06] MEDS: Non-Formulary 1 EACH PO SCH (09:34)
[2017-08-06] MEDS: LISINOPRIL 20 MG TABLET PO SCH (09:34)
[2017-08-06] MEDS: ALLOPURINOL 100 MG TABLET PO SCH (09:35)
[2017-08-06] MEDS: ACETAMINOPHEN 325 MG TABLET PO PRN ×2 (10:51→17:53)
[2017-08-06] MEDS: INSULIN DETEMIR 100 UNIT/ML 3ML PEN.INJCTR SQ SCH (20:19)
[2017-08-06] MEDS: SIMVASTATIN 20 MG TABLET PO SCH (20:19)
[2017-08-07] MEDS: FLUoxetine HCL 10 MG CAPSULE PO SCH (09:37)
[2017-08-07] MEDS: LISINOPRIL 20 MG TABLET PO SCH (09:38)
[2017-08-07] MEDS: ALLOPURINOL 100 MG TABLET PO SCH (09:38)
[2017-08-07] MEDS: Non-Formulary 1 EACH PO SCH (09:38)
[2017-08-07] MEDS: SIMVASTATIN 20 MG TABLET PO SCH (21:07)
[2017-08-07] MEDS: INSULIN DETEMIR 100 UNIT/ML 3ML PEN.INJCTR SQ SCH (21:07)
[2017-08-07] MEDS: ACETAMINOPHEN 325 MG TABLET PO PRN (21:09)
[2017-08-08] MEDS: FLUoxetine HCL 10 MG CAPSULE PO SCH (09:23)
[2017-08-08] MEDS: LISINOPRIL 20 MG TABLET PO SCH (09:23)
[2017-08-08] MEDS: Non-Formulary 1 EACH PO SCH (09:23)
[2017-08-08] MEDS: ALLOPURINOL 100 MG TABLET PO SCH (09:24)
[2017-08-08] MEDS: ACETAMINOPHEN 325 MG TABLET PO PRN (11:24)
[2017-08-08 11:47] VITALS: BP 162/68
[2017-08-08] MEDS ORDERED: LORazepam 0.5 MG TABLET PO PRN (12:24)
== END 2017-08-08 15:00 | DRG 93 ==
LOC: UNDOADMIN 15:42 → SOUTH 15:42
PROVIDERS: ADMIT Family Medicine; ATTEND Family Medicine
DX: R26.89 Other abnormalities of gait and mobility (principal); M17.12 Unilateral primary osteoarthritis, left knee; I10 Essential (primary) hypertension; E79.0 Hyperuricemia without signs of inflammatory arthritis and tophaceous disease; E11.9 Type 2 diabetes mellitus without complications
CPT/HCPCS: 97542

== ENCOUNTER 2017-09-09 17:36 | Observation (INO) | payer OTHER ==
--- NOTE | 2017-09-09 17:49 | ED Physician Documentation ---
General Adult - HISTORIAN Historian: patient - HPI Stated Complaint: mental confusion Chief Complaint: Altered Mental Status (confusion) Additional Information: 72-year-old white male Who in mid-July sustained a subdural hematoma was subsequently evacuation. Patient was seen at [facility] for a short period of time. Upon returning home patient started having some increasing pain in his left knee related to some arthritis. Patient was not able to ambulate well and was admitted to the hospital for short period of time and then to [facility] for rehabilitative services. Patient was discharged from [facility] approximately one week ago. Patient is up ambulating with a walker. Patient states he is been having some increasing difficulties in managing his daily living cares and home. Today patient felt that he was becoming more confused. Patient blood sugars have been running higher than their baseline. Patient denies any falls. Patient denies any traumatic injury to his knee. Patient denies any headache. Patient denies any numbness or weakness or change in visual acuity. Patient subsequently came to the ED for further evaluation and treatment. Patient stated he is not able to bear much weight on his left knee once again. Patient daughter does not feel that he safe in remaining home alone. Timing: still present Modifying Factors: left knee pain worse with weight bearing Context: Further Comments: yes (patient has been told by orthopedic surgery that he need to have a total knee replacement on the left side. However they will not do it at this time secondary to his other comorbidities and generalized weakness.) - ROS CONST: no problems EYES/ENT: denies: problems with vision CVS/RESP: denies: chest pain, shortness of breath, cough GI/: denies: abdominal pain, problems urinating, vomiting, nausea, diarrhea MS/SKIN/LYMPH: joint pain. denies: calf pain - PAST HX Past History: hypertension, other (spinal stenosis) Other History: CVA, diabetes Type 2, other (subdural hematoma) Surgeries/Procedures: none (ORIF tibial fracture) Immunizations: influenza, pneumovax - SOCIAL HX Smoking History: non-smoker Alcohol Use: none Drug Use: none - FAMILY HX Family History: No - VITAL SIGNS Vital Signs: Vital Signs Temp Pulse Resp BP Pulse Ox 162/68 08/08/17 09:00 - REVIEWED ASSESSMENTS Nursing Assessment Reviewed: Yes Vitals Reviewed: Yes <Adrian Narvaez - Last Filed: 09/09/17 18:11> - VITAL SIGNS Vital Signs: Vital Signs Temp Pulse Resp BP Pulse Ox 84 22 149/59 96 09/09/17 17:37 09/09/17 17:37 09/09/17 17:37 09/09/17 17:37 <PenaJacinda - Last Filed: 09/09/17 20:16> - PAST HX Allergies/Adverse Reactions: Allergies Allergy/AdvReac Type Severity Reaction Status Date / Time No Known Allergies Allergy Verified 09/09/17 17:56 Home Medications: Ambulatory Orders Medication Instructions Recorded Acetaminophen [Tylenol] 650 mg PO Q4-6 PRN 07/29/17 Guaifenesin [Mucinex] 600 mg PO BID PRN 07/29/17 Insulin Detemir [Levemir Flex-Pen] 18 unit SQ HS 07/29/17 Progress - Progress Progress: 1849: Per daughter with pt he is here for increasing confusion. Pt states he is here for knee pain (both) . He is not in any pain at this time per his report. We are awaiting other test results. They are aware his CT has no changes acutely. DG <Jacinda Pena - Last Filed: 09/09/17 20:16> ED Results Lab/Radiology - Lab Results Lab Results: Lab Results 09/09/17 18:38 WBC 9.50 K/ul K/ul (4.00-12.00) RBC 3.33 M/ul L M/ul (3.90-5.20) Hgb 9.8 g/dL L g/dL (12.0-18.0) Hct 31.2 % L % (37.0-53.0) MCV 93.7 fl fl (80.0-100.0) MCH 29.5 pg pg (28.0-34.0) MCHC 31.4 g/dL g/dL (30.0-36.0) RDW 16.2 % H % (11.3-14.3) Plt Count 281 K/mm3 K/mm3 (130-400) Neut % (Auto) 82.2 % H % (39.0-79.0) Lymph % (Auto) 8.7 % L % (16.0-50.0) [place] % (Auto) 6.1 % % (0.0-11.0) Eos % (Auto) 1.4 % % (0.0-6.8) Baso % (Auto) 0.1 (0.0-1.5) Neut # (Auto) 7.8 # k/uL H # k/uL (1.4-7.7) Lymph # (Auto) 0.8 # k/uL # k/uL (0.6-4.0) Alpine # (Auto) 0.6 # k/uL # k/uL (0.0-0.9) Eos # (Auto) 0.1 # k/uL # k/uL (0.0-0.6) Baso # (Auto) 0.0 # k/uL # k/uL (0.0-0.5) Reactive Lymphs % 1.5 % % (0.0-5.0) Reactive Lymphs # 0.2 # k/uL # k/uL (0.0-0.8) - Orders Orders: ED Orders Category Date Time Status CT BRAIN W/O CONTRAST Stat Exams 09/09/17 Completed CBC/PLATELET/DIFF Routine Lab 09/09/17 18:38 Completed CMP Routine Lab 09/09/17 18:38 Received URINALYSIS Routine Lab 09/09/17 Ordered <Jacinda Pena - Last Filed: 09/09/17 20:16> General Adult Physical Exam - PHYSICAL EXAM GENERAL APPEARANCE: mild distress EENT: dry mucous membranes NECK: normal inspection, supple. No: lymphadenopathy, stiff neck, Kernig's RESPIRATORY: no resp distress, chest non-tender, breath sounds normal. No: wheezes, rales, rhonchi CVS: reg rate & rhythm, heart sounds normal, equal pulses, no murmur, no gallop ABDOMEN: soft, no organomegaly, normal bowel sounds, no abdominal bruit, no distension, non-tender BACK: normal inspection, no CVA tenderness SKIN: warm/dry, normal color EXTREMITIES: non-tender NEURO: oriented X3, CN's nml as tested, motor nml, sensation nml, cognition normal (tracking good now but states that he sames confused some. ). No: mood/ affect nml (depression) <Adrian Narvaez - Last Filed: 09/09/17 18:11> - PHYSICAL EXAM GENERAL APPEARANCE: no distress NECK: normal inspection RESPIRATORY: no resp distress, chest non-tender, breath sounds normal CVS: reg rate & rhythm, heart sounds normal, equal pulses ABDOMEN: soft, normal bowel sounds SKIN: warm/dry EXTREMITIES: non-tender NEURO: oriented X3, CN's nml as tested <Jacinda Pena - Last Filed: 09/09/17 20:16> Discharge <Adrian Narvaez - Last Filed: 09/09/17 18:11> Decision to Admit: [id number] Date of Decison to Admit: 09/09/17 Decision Time: 19:00 <Jacinda Pena - Last Filed: 09/09/17 20:16> Clincal Impression: Dehydration Condition: Fair Disposition: 09 ADMITTED INPATIENT
[2017-09-09 18:50] LABS: BASOPHILS % 0.1 (0.0-1.5); EOSINOPHILS % 1.4 % (0.0-6.8); MEAN CORPUSCULAR HEMOGLOBIN 29.5 pg (28.0-34.0); MEAN CORPUSCULAR VOLUME 93.7 fl (80.0-100.0); MONOCYTES % 6.1 % (0.0-11.0); NEUTROPHILS # 7.8 # k/uL (1.4-7.7)
--- NOTE | 2017-09-09 18:56 | Diagnostic Imaging Report ---
NORA JENKINS [facility] [address] [facility] [address] [place], [place]. [address] Report Submission Date: September 09, 2017 6:37:04 PM CDT Patient Study Name: ALBINO COPELAND Date: September 09, 2017 6:11:28 PM CDT Modality Type: CT\SR Gender: M Description: CT BRAIN W/O CONTRAST : 47 Institution: [facility] Physician: NORA JENKINS HISTORY: 72-year-old male with headache, weakness, history of intracranial hemorrhage of 05/12/2017. COMPARISON: None available. TECHNIQUE: Noncontrast axial CT images of the head were performed. Sagittal and coronal reformatted images were obtained. FINDINGS: There is global brain atrophy with prominence of the ventricular system and sulci. There is mild decreased attenuation in the periventricular white matter. There is mild right frontal and temporal encephalomalacia. No intracranial hemorrhage, mass, midline shift, hydrocephalus, or evidence of acute large vessel infarct. There are small bilateral rambo bullosa. The mastoid air cells, middle ear spaces, and paranasal sinuses are clear. IMPRESSION: Global brain atrophy and chronic ischemic changes, without evidence of acute infarct or other acute intracranial process. Electronically signed on September 09, 2017 6:37:04 PM CDT by: Richard FREEDMAN
[2017-09-09] MEDS ORDERED: 0.9 % SODIUM CHLORIDE 1,000 ML IV SCH (19:30)
[2017-09-09] MEDS ORDERED: 0.9 % SODIUM CHLORIDE 1,000 ML IV ONE (19:45)
[2017-09-09] MEDS ORDERED: INSULIN DETEMIR 100 UNIT/ML 3ML PEN.INJCTR SQ SCH (21:10)
[2017-09-09] MEDS ORDERED: SIMVASTATIN 20 MG TABLET PO SCH (21:10)
[2017-09-09] MEDS ORDERED: ACETAMINOPHEN 325 MG TABLET PO PRN (21:10)
[2017-09-09 22:30] VITALS: BMI 36.9
[2017-09-10] MEDS: 0.9 % SODIUM CHLORIDE 1,000 ML IV SCH ×3 (04:38→08:03)
[2017-09-10 06:44] LABS: BASOPHILS % 0.2 (0.0-1.5); EOSINOPHILS % 1.9 % (0.0-6.8); MEAN CORPUSCULAR HEMOGLOBIN 29.3 pg (28.0-34.0); MEAN CORPUSCULAR VOLUME 89.6 fl (80.0-100.0); MONOCYTES % 8.7 % (0.0-11.0); NEUTROPHILS # 6.2 # k/uL (1.4-7.7)
[2017-09-10 07:53] LABS: APPEARANCE,URINE CLEAR (CLEAR); COLOR,URINE YELLOW (YELLOW); OCCULT BLOOD,URINE NEGATIVE (NEGATIVE); UROBILINOGEN URINE 0.2 Eu (0.2-1.0)
[2017-09-10] MEDS ORDERED: NAPROXEN 250 MG TABLET PO SCH (08:00)
[2017-09-10] MEDS ORDERED: LISINOPRIL 20 MG TABLET PO SCH (09:00)
[2017-09-10] MEDS ORDERED: FLUoxetine HCL 10 MG CAPSULE PO SCH (09:00)
[2017-09-10] MEDS ORDERED: ALLOPURINOL 100 MG TABLET PO SCH (09:00)
[2017-09-10] MEDS ORDERED: HYDROCHLOROTHIAZIDE 25 MG TABLET PO SCH (09:00)
[2017-09-10 10:21] VITALS: BP 146/62
--- NOTE | 2017-10-01 17:05 | Discharge Summary ---
Discharge Summary - Discharge Sumary History of Present Illness: 72-year-old white male who in mid-July sustained a subdural hematoma was subsequently evacuation. Patient was seen at [facility] for a short period of time. Upon returning home patient started having some increasing pain in his left knee related to some arthritis. Patient was not able to ambulate well and was admitted to the hospital for short period of time and then to [facility] for rehabilitative services. Patient was discharged from [facility] approximately one week ago. Patient is up ambulating with a walker. Patient states he is been having some increasing difficulties in managing his daily living cares and home. Today patient felt that he was becoming more confused. Patient blood sugars have been running higher than their baseline. Patient denies any falls. Patient denies any traumatic injury to his knee. Patient denies any headache. Patient denies any numbness or weakness or change in visual acuity. Patient subsequently came to the ED for further evaluation and treatment. Patient stated he is not able to bear much weight on his left knee once again. Patient daughter does not feel that he safe in remaining home alone. Condition at Discharge: Stable Home Medications: Ambulatory Orders Medication Instructions Recorded Acetaminophen [Tylenol] 650 mg PO Q4-6 PRN 07/29/17 Guaifenesin [Mucinex] 600 mg PO BID PRN 07/29/17 Insulin Detemir [Levemir Flex-Pen] 18 unit SQ HS 07/29/17 Consultations this Visit: None Procedures this Visit: None Allergies/Adverse Reactions: Allergies Allergy/AdvReac Type Severity Reaction Status Date / Time No Known Allergies Allergy Verified 09/09/17 17:56 Discharge Summary: Patient was started on IV fluids of normal saline. Patient did respond well. Patient states that by the next morning he was feeling better. Patient creatinine had improved from 1.9 to 1.6. Patient BUN remain stable. Patient did drop his hemoglobin from 9.8 to 8.9. Patient continues to have a lot of pain related to his arthritis in his knees. Patient is not able to ambulate well. It was felt that the patient with Kenneth be able to manage at home very well. Patient was subsequently transferred back to [facility] for further senior living rehabilitative services. - Final Diagnosis (1) Dehydration Problems: improved (2) Arthralgia Problems: patient continues to have pain in his knees (3) Hypertension Problems: stable
== END 2017-09-10 12:39 ==
LOC: ED 17:36 → SOUTH 19:33 → INTOOBSV 19:33
PROVIDERS: ADMIT Nurse Practitioner Family; ATTEND Nurse Practitioner Family
DX: E86.0 Dehydration (principal)
CPT/HCPCS: 70450; 80053; 81002; 85025; G0378; J1815; J7030; 96360; 96361; 99217; 99218; G0379; S1016

== ENCOUNTER 2017-10-17 13:02 | Outpatient (CLI) | payer OTHER ==
[2017-05-11 00:54] VITALS: BP 182/64
== END 2017-10-17 13:03 ==
LOC: POD 13:02
PROVIDERS: ATTEND Podiatrist
DX: B35.1 Tinea unguium (principal); M79.674 Pain in right toe(s); M79.675 Pain in left toe(s)
CPT/HCPCS: 11721; G0463

== ENCOUNTER 2017-12-15 08:45 | Outpatient (CLI) | payer OTHER ==
[2017-12-15 09:48] LABS: eGFR (African) 45; eGFR (Non-African) 37
== END 2017-12-15 08:46 ==
LOC: LAB 08:45
PROVIDERS: ATTEND Family Medicine
DX: E11.9 Type 2 diabetes mellitus without complications (principal); M10.9 Gout, unspecified
CPT/HCPCS: 36415; 80053; 80061; 83036; 84550

== ENCOUNTER 2017-12-24 10:14 | Emergency (ER) | payer OTHER ==
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
[2017-12-24 11:58] LABS: BASOPHILS % 0.1 (0.0-1.5); EOSINOPHILS % 0.1 % (0.0-6.8); MEAN CORPUSCULAR HEMOGLOBIN 29.1 pg (28.0-34.0); MEAN CORPUSCULAR VOLUME 92.9 fl (80.0-100.0); MONOCYTES % 2.4 % (0.0-11.0); NEUTROPHILS # 8.2 # k/uL (1.4-7.7)
[2017-12-24] MEDS: Lidocaine 1% 5ml(IM or SUTURE)(PAIN CLINIC) IJ ONE (12:05)
[2017-12-24 12:06] LABS: eGFR (African) 48; eGFR (Non-African) 40
[2017-12-24] MEDS: DIPH,PERTUSS(ACELL),TET VAC/PF 0.5 ML DISP.SYRIN IM ONE (12:10)
[2017-12-24] MEDS: Lidocaine 1% 5ml(IM or SUTURE)(PAIN CLINIC) ONE (13:37)
[2017-12-24 13:45] VITALS: BP 166/58
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
== END 2017-12-24 12:15 | disposition home or self-care (01) ==
LOC: ED 10:14
DX: S01.81XA Laceration without foreign body of other part of head, initial encounter (principal); W22.8XXA Striking against or struck by other objects, initial encounter; Y92.9 Unspecified place or not applicable; Y93.9 Activity, unspecified; Y99.9 Unspecified external cause status
CPT/HCPCS: 12002; 70450; 80053; 85025; 85610; 90471; 90715; 96372

== ENCOUNTER 2018-06-25 09:23 | Outpatient (CLI) | payer OTHER ==
[2018-06-25 10:53] LABS: eGFR (Non-African) 34
== END 2018-06-25 09:25 ==
LOC: LAB 09:23
PROVIDERS: ATTEND Family Medicine
DX: E11.9 Type 2 diabetes mellitus without complications (principal); I10 Essential (primary) hypertension; M10.9 Gout, unspecified
CPT/HCPCS: 36415; 80053; 80061; 82043; 83036; 84550

== ENCOUNTER 2018-11-30 09:48 | Outpatient (CLI) | payer OTHER ==
[2018-12-01 09:00] LABS: APPEARANCE,URINE CLEAR (CLEAR); COLOR,URINE YELLOW (YELLOW)
[2018-12-01 09:01] LABS: OCCULT BLOOD,URINE NEGATIVE (NEGATIVE); PH URINE 5.5 (5.0 - 8.0); UROBILINOGEN URINE 0.2 Eu (0.2-1.0)
== END 2018-11-30 09:50 ==
LOC: LAB 09:48
PROVIDERS: ATTEND Family Medicine
DX: E11.9 Type 2 diabetes mellitus without complications (principal); I10 Essential (primary) hypertension
CPT/HCPCS: 36415; 81002; 83036